=== PATIENT | female | born 1940 | race Caucasian/White ===

== ENCOUNTER 2018-01-08 00:23 | Emergency (ER) | payer OTHER ==
[~2018-01-08] VITALS: Ht 165.1 cm; Wt 62.0 kg
[2018-01-08 00:27] VITALS: BP 156/69; PULSE 64; RESP 15; TEMP 98.6; O2SAT 96
[2018-01-08 00:52] VITALS: BP 127/61; PULSE 60; RESP 15; O2SAT 96
[2018-01-08] MEDS ORDERED: SODIUM CHLOR 0.9% 1000 ML INJ 1,000 ML IV ONE (01:00)
[2018-01-08 01:01] LABS: AUTOMATED NEUTROPHIL # 4.3 TH/MM3 (1.8-7.7); BASOPHIL # 0.1 TH/MM3 (0-0.2); BASOPHIL % 0.7 % (0.0-2.0); EOSINOPHIL # 0.3 TH/MM3 (0-0.4); EOSINOPHIL % 2.8 % (0.0-4.0); HEMATOCRIT 43.3 % (35.0-46.0); LYMPHOCYTE # 5.3 TH/MM3 (1.0-4.8); MEAN CELL VOLUME 88.6 FL (80.0-100.0); MEAN CORPUSCULAR HEMOGLOBIN 30.7 PG (27.0-34.0); MEAN CORPUSCULAR HGB CONC 34.6 % (32.0-36.0); MEAN PLATELET VOLUME 7.7 FL (7.0-11.0); MONO % 9.9 % (0.0-8.0); MONOCYTE # 1.1 TH/MM3 (0-0.9); NEUT % 38.6 % (16.0-70.0); PLATELET COUNT 287 TH/MM3 (150-450); RED BLOOD COUNT 4.89 MIL/MM3 (4.00-5.30); RED CELL DISTRIBUTION WIDTH 12.9 % (11.6-17.2); WHITE BLOOD COUNT 11.1 TH/MM3 (4.0-11.0)
[2018-01-08 01:24] LABS: ALKALINE PHOSPHATASE 78 U/L (45-117); TOTAL BILIRUBIN ADULT 0.2 MG/DL (0.2-1.0); TOTAL PROTEIN 7.7 GM/DL (6.4-8.2); TROPONIN I LESS THAN 0.02 NG/ML (0.02-0.05)
[2018-01-08 01:33] LABS: BANDS 1 % (0-6); BASOPHILS 1 % (0-2); LYMPHOCYTES 41 % (9-44); MONOCYTES 10 % (0-8); NEUTROPHIL # MANUAL DIFF 4.9 TH/MM3 (1.8-7.7); POLYS (SEG NEUTROPHILS) 43 % (16-70)
[2018-01-08 01:34] LABS: SMUDGE CELLS PRESENT PRESENT
[2018-01-08 01:37] LABS: ALT (GPT) 24 U/L (10-53); AST (GOT) 22 U/L (15-37); BICARBONATE 25.8 MEQ/L (21.0-32.0); BLOOD UREA NITROGEN 12 MG/DL (7-18); CALCIUM 9.9 MG/DL (8.5-10.1); CHLORIDE 106 MEQ/L (98-107); CREATININE 0.72 MG/DL (0.50-1.00); GLOMERULAR FILTRATION RATE 79 ML/MIN (>89); GLUCOSE,RANDOM 126 MG/DL (74-106); SODIUM (NA) 142 MEQ/L (136-145)
[2018-01-08 02:00] VITALS: BP 159/68; PULSE 66; RESP 20; O2SAT 98
--- NOTE | 2018-01-08 02:09 | PD ---
HPI Chief Complaint: Syncope/Near-Syncope Time Seen by Provider: 00:33 Travel History International Travel<30 days: No Contact w/Intl Traveler<30days: No Traveled to known affect area: No History of Present Illness HPI Patient is a 77-year-old female in very good health. Pt was visiting her daughter who is also in the ER. Her daughter had syncopized and has a fractured her jaw. Patient was sitting bedside at her daughter's bed in the emergency room when she started to worry about all the complications that she( her daugther ) would have to deal with her dogs and her daughter's work etc. As she was worrying suddenly she felt a graying out of her vision felt weak and she sat on the floor. She was put into a stretcher and transported to an exam room. She says en route she actually fully syncopized for a moment. Patient has a history of a vasovagal syncope for which she has been observed in the past and she has not had an episode for over 6 year. She has no significant cardiac history no long history no other history tonight she denies focal symptoms no slurred speech no confusion. She knows her symptoms of vasovagal she said everything was getting hermelinda out she was getting very weak and she sat herself on the floor so she did not fall. 6 years ago she had a full workup for the same tilt table multiple studies and vasovagal with a final diagnosis night she denies chest pain she denies shortness of breath she denies head injury she denies focal deficits in the ER her vitals are within normal limits she is afebrile and her EKG is normal sinus rhythm [facility] Past Medical History Medical other: Yes (VASOVAGLE SYNCOPE) Past Surgical History Surgical History: No Previous Surgery Social History Alcohol Use: No Tobacco Use: Yes Substance Use: No Allergies-Medications (Allergen,Severity, Reaction): Coded Allergies: No Known Allergies (Verified Allergy, Unknown, 01/08/18) Reported Meds & Prescriptions Reported Meds & Active Scripts Active No Active Prescriptions or Reported Medications Review of Systems Except as stated in HPI: all other systems reviewed are Neg Eyes: Positive: Visual changes Neurologic: Positive: Syncope Physical Exam Narrative GENERAL: Awake alert nontoxic nonseptic appearing SKIN: Warm and dry. HEAD: Atraumatic. Normocephalic. EYES: Pupils equal and round. No scleral icterus. No injection or drainage. 4mm pupils bilateral ENT: No nasal bleeding or discharge. Mucous membranes pink and moist. NECK: Trachea midline. No JVD. CARDIOVASCULAR: Regular rate and rhythm. Heart rate regular rate and rhythm BP within normal limits RESPIRATORY: No accessory muscle use. Clear to auscultation. Breath sounds equal bilaterally. GASTROINTESTINAL: Abdomen soft, non-tender, nondistended. Hepatic and splenic margins not palpable. MUSCULOSKELETAL: Extremities without clubbing, cyanosis, or edema. No obvious deformities. NEUROLOGICAL: Awake and alert. No obvious cranial nerve deficits. Motor grossly within normal limits. Five out of 5 muscle strength in the arms and legs. Normal speech. PSYCHIATRIC: Appropriate mood and affect; insight and judgment normal. Data Data Last Documented VS Vital Signs Date Time Temp Pulse Resp B/P (MAP) Pulse Ox O2 Delivery O2 Flow Rate FiO2 01/08/18 03:24 01/08/18 02:20 58 20 61 20 64 20 01/08/18 02:00 98 Room Air 01/08/18 00:27 98.6 Orders Orders Electrocardiogram (01/08/18 00:39) Complete Blood Count With Diff (01/08/18 00:39) Comprehensive Metabolic Panel (01/08/18 00:39) Troponin I (01/08/18 00:39) Lipase (01/08/18 00:39) Sodium Chlor 0.9% 1000 Ml Inj (Ns 1000 M (01/08/18 01:00) Urinalysis - C+S If Indicated (01/08/18 01:08) Orthostatic Vital Signs (01/08/18 02:18) Ed Discharge Order (01/08/18 03:24) Labs Laboratory Tests Test 01/08/18 00:50 01/08/18 02:09 White Blood Count 11.1 TH/MM3 Red Blood Count 4.89 MIL/MM3 Hemoglobin 15.0 GM/DL Hematocrit 43.3 % Mean Corpuscular Volume 88.6 FL Mean Corpuscular Hemoglobin 30.7 PG Mean Corpuscular Hemoglobin Concent 34.6 % Red Cell Distribution Width 12.9 % Platelet Count 287 TH/MM3 Mean Platelet Volume 7.7 FL Neutrophils (%) (Auto) 38.6 % Lymphocytes (%) (Auto) 48.0 % Monocytes (%) (Auto) 9.9 % Eosinophils (%) (Auto) 2.8 % Basophils (%) (Auto) 0.7 % Neutrophils # (Auto) 4.3 TH/MM3 Lymphocytes # (Auto) 5.3 TH/MM3 Monocytes # (Auto) 1.1 TH/MM3 Eosinophils # (Auto) 0.3 TH/MM3 Basophils # (Auto) 0.1 TH/MM3 CBC Comment AUTO DIFF Differential Total Cells Counted 100 Neutrophils % (Manual) 43 % Band Neutrophils % 1 % Lymphocytes % 41 % Monocytes % 10 % Eosinophils % 4 % Basophils % 1 % Neutrophils # (Manual) 4.9 TH/MM3 Differential Comment FINAL DIFF MANUAL Atypical Lymphocytes % Smudge Cells PRESENT Platelet Estimate NORMAL Platelet Morphology Comment NORMAL Red Cell Morphology Comment NORMAL Blood Urea Nitrogen 12 MG/DL Creatinine 0.72 MG/DL Random Glucose 126 MG/DL Total Protein 7.7 GM/DL Albumin 4.0 GM/DL Calcium Level 9.9 MG/DL Alkaline Phosphatase 78 U/L Aspartate Amino Transf (AST/SGOT) 22 U/L Alanine Aminotransferase (ALT/SGPT) 24 U/L Total Bilirubin 0.2 MG/DL Sodium Level 142 MEQ/L Potassium Level 4.3 MEQ/L Chloride Level 106 MEQ/L Carbon Dioxide Level 25.8 MEQ/L Anion Gap 10 MEQ/L Estimat Glomerular Filtration Rate 79 ML/MIN Troponin I LESS THAN 0.02 NG/ML Lipase 167 U/L Urine Color LIGHT-YELLOW Urine Turbidity CLEAR Urine pH 7.5 Urine Specific [place] 1.006 Urine Protein NEG mg/dL Urine Glucose (UA) NEG mg/dL Urine Ketones NEG mg/dL Urine Occult Blood NEG Urine Nitrite NEG Urine Bilirubin NEG Urine Urobilinogen LESS THAN 2.0 MG/DL Urine Leukocyte Esterase NEG Urine RBC 1 /hpf Urine WBC LESS THAN 1 /hpf Urine Amorphous Sediment RARE Urine Mucus FEW /lpf Microscopic Urinalysis Comment CULT NOT INDICATED MDM Medical Decision Making Medical Screen Exam Complete: Yes Emergency Medical Condition: Yes Interpretation(s) Normal sinus rhythm EKG rate of 61--- no ectopy no ST depressions or elevations Differential Diagnosis Vasovagal neurocardiogenic near syncope versus dehydration versus cardiac arrhythmia near syncope versus neuro focal deficit versus other causes of syncope near syncope Narrative Course Patient is given a liter fluid orthostatics are within normal limits there is no significant change on standing sitting and lying patient has EKG chest x-ray urine all within normal limits labs are normal no signs of dehydration or hyponatremia patient is discharged to follow-up as an outpatient Diagnosis Primary Impression: Vasovagal syncope Patient Instructions: General Instructions, Near Syncope (ED) Scripts No Active Prescriptions or Reported Meds Disposition: 01 DISCHARGE HOME Condition: Stable Julio Cesar Bingham MD Jan 08, 2018 02:09
[2018-01-08 02:20] VITALS: BP_SYST 129; BP_SYST 134; BP_SYST 137; BP_DIAS 61; BP_DIAS 63; RESP 20
[2018-01-08 02:29] LABS: AMORPHOUS SEDIMENT, URINE RARE; BILIRUBIN, URINE NEG (NEG); BLOOD, URINE NEG (NEG); GLUCOSE,URINE NEG (NEG); KETONE, URINE NEG (NEG); MUCUS URINE FEW /lpf (OCC); NITRITE,URINE NEG (NEG); PH, URINE 7.5 (5.0-8.5); URINE COLOR LIGHT-YELLOW (YELLW/STRAW); URINE LEUKOCYTE ESTERASE NEG (NEG)
--- NOTE | 2018-01-08 14:26 | EKG ---
Date Performed: 01/08/2018 Time Performed: 00:25:13 PTAGE: 77 years EKG: Sinus rhythm WITH HIGH GRADE AV BLOCK INCOMPLETE RIGHT BUNDLE BRANCH BLOCK ABNORMAL ECG NO PREVIOUS TRACING DOCTOR: Taylor Rivera Interpretating Date/Time 01/08/2018 14:26:14
== END 2018-01-08 03:43 | disposition home or self-care (01) ==
LOC: NEPC 00:23
DX: R55 Syncope and collapse (principal); R94.31 Abnormal electrocardiogram [ECG] [EKG]; Z72.0 Tobacco use
CPT/HCPCS: 80053; 81001; 83690; 84484; 85007; 85027; 93005; 96360; 99284; J7030